=== PATIENT | male | born 1980 | race Caucasian/White ===

== ENCOUNTER 2016-07-17 18:12 | Emergency (ER) | payer BC ==
[2016-07-17 18:25] VITALS: BP 128/83
--- NOTE | 2016-07-17 18:39 | UC ---
Abdominal Pain Male HPI - HPI Summary HPI Summary: The patient comes in today for: 1. Left lower abdominal pain: Onset: 40 minutes ago. Palliative/provocative: Nothing makes it better or worse. Quality: Sharp and ache. Region: Left abdomen Severity: 5/10 Time: Constant. Associated symptoms: Previous event: He had this two days ago. It was present only for 1-2 hours. It just went away on its own. Hematuria: None. Kidney stones: None in the past. Bowel movement: Early today and it was normal Fevers: None. Hx of diverticulosis: None know. Vomiting: None Nausea: Present. Diarrhea: None. Previous intestinal problems: None. * - History of Current Complaint Chief Complaint: UCAbdominalPain Stated Complaint: ABD PAIN Time Seen by Provider: 07/17/16 18:14 Hx Obtained From: Patient - Allergies/Home Medications Allergies/Adverse Reactions: Allergies Allergy/AdvReac Type Severity Reaction Status Date / Time No Known Allergies Allergy Verified 07/17/16 18:16 Home Medications: Home Medications Tenofovir/Emtricitabine(*) [Truvada*] 1 tab PO DAILY 07/17/16 [History Confirmed 07/17/16] PMH/Surg Hx/FS Hx/Imm Hx Previously Healthy: No - He is on PrEP Endocrine History Of: Denies: Diabetes, Thyroid Disease, Hyperthyroidism, Hypothyroidism, Dyslipidemia Cardiovascular History Of: Denies: Cardiac Disorders, Hypertension, Pacemaker/ICD, Myocardial Infarction , Congestive Heart Failure, Atrial Fibrillation, Deep Vein Thrombosis, Bleeding Disorders Respiratory History Of: Denies: COPD, Asthma, Bronchitis, Pneumonia, Pulmonary Embolism GI/ History Of: Denies: Gastroesophageal Reflux, Ulcer, Gastrointestinal Bleed, Gall Bladder Disease, Kidney Stones, Diverticulitis, Renal Disease, Urosepsis Neurological History Of: Reports: Migraine - Very infrequent. Denies: TIA, CVA, Dementia, Seizures Psychological History Of: Reports: Anxiety, Depression Cancer History Of: Denies: Lung Cancer, Colorectal Cancer, Breast Cancer, Prostate Cancer Other History Of: Negative For: HIV, Hepatitis B, Hepatitis C, Anticoagulant Therapy - Surgical History Surgical History: Yes Surgery Procedure, Year, and Place: BACK SURGERY - Family History Known Family History: Positive: Hypertension Negative: Cardiac Disease - Social History Occupation: Employed Full-time Alcohol Use: Rare Substance Use Type: Prescribed, Sedatives Smoking Status (MU): Former Smoker Review of Systems Constitutional: Negative Skin: Negative Eyes: Negative ENT: Negative Respiratory: Negative Cardiovascular: Negative Gastrointestinal: Abdominal Pain Genitourinary: Negative Neurological: Negative All Other Systems Reviewed And Are Negative: Yes Physical Exam Triage Information Reviewed: Yes Appearance: Well-Appearing, No Pain Distress, Well-Nourished, Other: - While seeing the patient, his abdominal pain has improved. Vital Signs: Initial Vital Signs Temp 99.3 F 07/17/16 18:18 Pulse 84 07/17/16 18:18 Resp 24 07/17/16 18:18 BP 128/83 07/17/16 18:18 Pulse Ox 99 07/17/16 18:18 Vital Signs Reviewed: Yes Eyes: Positive: Conjunctiva Clear. Negative: Discharge ENT: Positive: Hearing grossly normal. Negative: Pharyngeal erythema, Nasal congestion, Nasal drainage, TM bulging, TM dull, TM red, Tonsillar swelling, Tonsillar exudate Dental: Negative: Gross Decay/Caries @, Dental Fracture @ Neck: Positive: Supple, Nontender, No Lymphadenopathy. Negative: Nuchal Rigidity Respiratory: Positive: Chest non-tender, Lungs clear, No respiratory distress, No accessory muscle use. Negative: Crackles, Wheezing Cardiovascular: Positive: RRR, No Murmur Abdomen Description: Positive: No Organomegaly, Soft. Negative: Nontender, Distended, Guarding, Peritoneal Signs Musculoskeletal: Positive: Strength Intact, ROM Intact, No Edema Neurological: Positive: Alert, Muscle Tone Normal Psychological: Positive: Age Appropriate Behavior, Consolable Skin: Negative: rashes, breakdown Abd Pain Male Course/Dx - Course Course Of Treatment: From the time that the patient came in (abdominal pain ) to the time he was evaluated, (the pain dropped to 1/10), he was told that I did not know what was causing his pain. Initially, it appeared to be possibly diverticulitis, but with it improving again for a second time, he was told that it may be a kidney stone or resolving volulus. Either way, he decided to not go to the ER as recommended. He was told to follow up with his primary care provider as soon as he can and if this occurs again, to go to the ER. We don't have CT tonight. - Differential Dx/Clinical Impression Differential Diagnosis/HQI/PQRI: Renal Colic, Other - volvulus. Provider Diagnoses: LLQ abdominal pain, resolving. Discharge - Discharge Plan Condition: Stable Disposition: AGAINST MEDICAL ADVICE Patient Education Materials: Acute Abdominal Pain (ED), Kidney Stones (ED), Diverticulitis (ED) Referrals: Non Staff,Doctor [Primary Care Provider] - As Soon As Possible (Please see your primary care provider as soon as you can for evaluation of your episodic abdominal pain. If you get worse, please be seen in the ER.)
== END 2016-07-17 19:31 | disposition left against medical advice (07) ==
LOC: UCCORT 18:12
DX: R10.32 Left lower quadrant pain (principal); G43.909 Migraine, unspecified, not intractable, without status migrainosus; F41.9 Anxiety disorder, unspecified; F32.9 Major depressive disorder, single episode, unspecified; Z87.891 Personal history of nicotine dependence
CPT/HCPCS: 81003; 99212; G0463